=== PATIENT | female | born 1995 | race Caucasian/White ===

== ENCOUNTER 2017-10-30 08:24 | Day surgery (SDC) | payer OTHER ==
[~2017-10-30 08:24] MED LIST: ONDANSETRON HCL/PF 2 MG/ML VIAL IV PRN; RINGER'S SOLUTION,LACTATED 1,000 ML IV PRN; ceFAZolin SODIUM 1 GM VIAL IV PRN; diphenhydrAMINE HCL 50 MG/ML VIAL IV PRN
[2017-10-30] MEDS ORDERED: RINGER'S SOLUTION,LACTATED 1,000 ML IV ONE (09:13)
[2017-10-30] MEDS ORDERED: BUPIVACAINE HCL 50 ML VIAL IJ ONE (10:40)
--- NOTE | 2017-10-30 11:18 | OR ---
Operative Report - Dictated Report Narrative: Date: 10/30/2017 Surgeon: Rivas Poole M.D. Footwear Sales Representative: Jefferson Sahu PA-C Anesthesia: MAC plus local anesthetic Preoperative diagnosis: Ganglion cyst of left foot Postoperative diagnosis: Ganglion cyst of left foot Procedure: Excision of ganglion cyst left foot Estimated blood loss: Minimal Tourniquet time: 19 Minutes at 300 millimeters mercury Retained implants: None Specimens: Cyst for permanent section Complications: None Indications: Jayne is a 22-year-old female with a mass of the left foot adjacent to the anterior tibialis tendon for approximately the last 6 months. She was seen in clinic and exam was consistent with a ganglion cyst. 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 The risks, benefits, and treatment options were discussed with the patient and the plan for excision was discussed. Risks were reviewed including , blood clots, nerve/tendon/blood vessel injury, recurrence, wound complications and need for additional procedures. Procedure: After a timeout, anesthetic consisting of 1 g of Ancef was administered. Patient was placed supine on the operating table with all bony prominences well- padded. A well-padded nonsterile tourniquet was placed around the left thigh. The left lower extremity was then prepped and draped in usual sterile fashion. Extremity was exsanguinated and tourniquet was inflated. Attention was turned to the cyst which was located medial to the insertion of the anterior tib-fib and just proximal to the talonavicular joint. There is approximately 1.5 cm in diameter. A longitudinal incision was made centered over the cyst approximately 3 cm in length. Common additional blunt dissection and electrocautery was carried down through the subcutaneous tissue to the level of the extensor retinaculum and dorsal fascia of the foot. This was incised revealing the ganglion. This was carefully bluntly dissected circumferentially and noted to originate from the tibialis anterior tendon sheath. The stalk was dissected out and cauterized with electrocautery. The cyst was then removed in its entirety and sent to pathology for permanent section. The tourniquet was then let down and hemostasis was obtained with a combination of direct pressure and electrocautery. The wound was then thoroughly irrigated with normal saline. Subcutaneous tissue was repaired with 3-0 Vicryl. The skin was closed utilizing interrupted 4-0 nylon. Xeroform, 4 x 4's, soft roll, and Edmar wrap was applied. Patient was then awoken and transferred to postanesthesia care in stable condition. All sponge, sharp, and instrument counts were correct prior to closing the wounds.
[2017-10-30] MEDS ORDERED: RINGER'S SOLUTION,LACTATED 1,000 ML IV PRN (11:35)
[2017-10-30] MEDS ORDERED: HYDROmorphone HCL 2 MG/ML VIAL IV PRN (11:36)
[2017-10-30] MEDS: oxyCODONE HCL/ACETAMINOPHEN 1 TAB TABLET PO PRN ×2 (12:03→13:09)
[2017-10-30 14:18] VITALS: BP 120/63
== END 2017-10-30 08:25 | disposition home or self-care (01) ==
LOC: AMB 08:24
PROVIDERS: ATTEND Orthopaedic Surgery
PROC: 0YBN0ZZ Excision of Left Foot, Open Approach (ICD-10-PCS; principal; 2017-10-30)
DX: M67.472 Ganglion, left ankle and foot
CPT/HCPCS: 28090; J2405